=== PATIENT | male | born 1940 ===

== ENCOUNTER 2023-02-19 07:30 | Observation (INO) ==
[2023-02-19 06:43] LABS: Rapid COVID-19 Molecular Undetected (Undetected)
[~2023-02-19 07:30] MED LIST: Buffered Lidocaine 1% SYRIN 1 ml INTRADERM ONE; Bupivacaine 0.25% EPI 200,000 30 ML SDV ONE; Heparin 5000 UNITS/ML 1 mL VIAL ONE; Lactated Ringers 1000 ml BAG 1,000 ML IV SCH; Lidocaine 2% PF 5 ML VIAL ONE; Propofol 10 MG/ML 20 ML BTL ONE; Rocuronium 50 mg VIAL 10 mg/ml 5 ml VIAL (50 mg) ONE; fentaNYL 250 mcg/5 ml 50 MCG/ML 5 ml VIAL (250 MCG) ONE
[2023-02-19] MEDS ORDERED: fentaNYL 100 mcg/2 ml 50 MCG/ML VIAL IV PRN (07:52)
[2023-02-19] MEDS ORDERED: Dexamethasone IV 4 MG/ML VIAL 1 ml VIAL ONE (07:52)
[2023-02-19] MEDS ORDERED: Ondansetron 4 mg VIAL 2 MG/ML 2 ml VIAL ONE (07:52)
[2023-02-19] MEDS ORDERED: Naloxone 0.4 mg VIAL 0.4 mg/ml 1 ml VIAL IV PRN (07:52)
[2023-02-19] MEDS ORDERED: Phenylephrine IV 10 MG/ML 1 ml VIAL ONE (08:57)
[2023-02-19] MEDS ORDERED: Rocuronium 50 mg VIAL 10 mg/ml 5 ml VIAL (50 mg) ONE (10:42)
[2023-02-19] MEDS ORDERED: Acetaminophen IV 1 GM/100ML 1,000 MG/100 ML BAG IV ONE (11:08)
[2023-02-19] MEDS ORDERED: HYDROmorphone 0.5 MG/0.5 ML SYRINGE ONE (11:29)
[2023-02-19] MEDS ORDERED: HYDROmorphone 1 MG/1 ML SYRINGE IV SLOW PU PRN (12:15)
[2023-02-19] MEDS ORDERED: Ondansetron 4 mg VIAL 2 MG/ML 2 ml VIAL IV PRN ×2 (12:15→14:38)
[2023-02-19] MEDS ORDERED: Albuterol/Ipratropium NEB.SOL (2.5/0.5 MG) 3 ML NEB.SOLN INH PRN (12:23)
[2023-02-19] MEDS: NS 0.9% 1000 ml BAG 1,000 ML IV SCH (14:09)
[2023-02-19] MEDS ORDERED: Prochlorperazine 5 mg/ml 2 ml VIAL (10 mg) IV PRN (14:37)
[2023-02-19] MEDS ORDERED: Trimethobenzamide *IM* 100 mg/ml 2 ml VIAL (200 mg) IM PRN (14:38)
[2023-02-19] MEDS: Acetaminophen IV 1 GM/100ML 1,000 MG/100 ML BAG IV SCH ×2 (14:53→22:00)
[2023-02-20] MEDS ORDERED: Benzocaine (plain) Lozenge 15 MG MT PRN (02:32)
[2023-02-20] MEDS: Acetaminophen IV 1 GM/100ML 1,000 MG/100 ML BAG IV SCH ×2 (05:49→14:23)
[2023-02-20] MEDS: NS 0.9% 1000 ml BAG 1,000 ML IV SCH (05:49)
[2023-02-20 06:03] LABS: ABS Lymphocytes 1.1 10^3/uL (1.0-4.8); ABS Monocytes 0.8 10^3/uL (0.0-1.1); ABS Neutrophils 6.9 10^3/uL (1.5-7.6); Eosinophil % 0.1 %; Hematocrit 39.3 % (38-53); Hemoglobin 13.1 g/dL (13.2-16.3); Mean Corpuscular Hemoglobin 28.6 pg (27-33); Mean Corpuscular Hgb Conc 33.2 g/dL (31-36); Mean Corpuscular Volume 86.1 fL (80-97); Mean Platelet Volume 7.4 fL (7.5-11.2); Platelet Count 196 10^3/uL (150-450); Red Blood Count 4.57 10^6/uL (4.06-5.63); Red Cell Distribution Width 13.2 % (12-17); White Blood Count 8.8 10^3/uL (3.6-10.2)
[2023-02-20 06:22] LABS: Calcium 8.5 mg/dL (8.6-10.3); Creatinine, Serum 0.99 mg/dL (0.67-1.17); Potassium 3.8 mmol/L (3.5-5.0); eGFR CKD-EPI 76.5 (>60)
[2023-02-20 10:44] VITALS: BP 136/77
== END 2023-02-20 15:15 | disposition home or self-care (01) ==
LOC: AA → SSU 13:44
PROVIDERS: ADMIT Surgery; ATTEND Surgery